=== PATIENT | female | born 1955 | race Caucasian/White ===

== ENCOUNTER 2024-04-11 16:30 | Observation (INO) | payer OTHER ==
[2024-04-11 17:42] LABS: #Basophils 0.05 10x3/uL (0.0-0.2); %Basophils 0.5 % (0.0-1.0); %Eosinophils 4.8 % (0.0-10.0); %Lymphocytes 36.4 % (21.0-51.0); %Monocytes 7.2 % (0.0-10.0); %Neutrophils 50.7 % (42.0-75.0); Hematocrit 41.1 % (36.0-47.0); Hemoglobin 13.4 g/dL (12.0-16.0); Mean Corpuscular HGB CONC 32.6 g/dL (32.0-36.0); Mean Corpuscular Hemoglobin 28.1 pg (27.0-31.0); Mean Corpuscular Volume 86.2 fL (78.0-98.0); Mean Platelet Volume 9.7 fL (7.4-10.4); Platelet Count 307 10x3/uL (130-400); RBC Distribution Width 15.1 % (11.5-14.5); Red Blood Cell (RBC) Count 4.77 mill/uL (4.20-5.40)
[2024-04-11 18:01] LABS: INR-International Normal Ratio 0.9; Prothrombin Time 11.9 sec (12.0-14.7)
[2024-04-11 18:02] LABS: ALT (SGPT) 14 U/L (8-55); AST (SGOT) 16 U/L (5-34); Albumin 3.4 g/dL (3.4-4.8); Alkaline Phosphatase 112 U/L (40-110); Anion Gap 12 mmol/L (10-20); BUN (Urea Nitrogen) 12 mg/dL (9.8-20.1); Bilirubin, Total 0.6 mg/dL (0.2-1.2); Calc. Creatinine Clearance 0 mL/min (70-130); Calcium 9.1 mg/dL (7.8-10.44); Carbon Dioxide 33 mmol/L (23-31); Chloride 98 mmol/L (98-107); Estimated GFR 75; Globulin 3.7 g/dL (2.4-3.5); Glucose 108 mg/dL (80-115); PTT 31.8 sec (22.9-36.1); Potassium 3.2 mmol/L (3.5-5.1); Protein, Total 7.1 g/dL (5.8-8.1); Sodium 140 mmol/L (136-145)
[2024-04-11 18:07] LABS: Troponin I Less than 0.010 ng/mL (< 0.028)
[2024-04-11] MEDS ORDERED: hydrALAZINE 20 MG/ML VIAL SLOW IVP PRN (19:30)
[2024-04-11] MEDS ORDERED: Senokot S 8.6-50 MG TAB PO PRN (19:30)
[2024-04-11] MEDS ORDERED: Ondansetron ODT 4 MG TAB PO PRN (19:30)
[2024-04-11] MEDS ORDERED: Ondansetron PF 4 MG/2 ML Vial IVP PRN (19:30)
[2024-04-11] MEDS ORDERED: Calcium Carbonate 500 MG ChewTAB PO PRN (19:30)
[2024-04-11] MEDS: Mirtazapine 15 MG TAB PO SCH (23:02)
[2024-04-11] MEDS: Sodium Chloride 0.9% 1,000 ML IV SCH (23:02)
[2024-04-11] MEDS: DULoxetine 60 MG CAP PO SCH (23:02)
[2024-04-11] MEDS: Atorvastatin Calcium 40 MG TAB PO SCH (23:02)
[2024-04-11] MEDS: Gabapentin 300 MG CAP PO SCH (23:03)
[2024-04-11 23:05] VITALS: BMI 42.1
[2024-04-12] MEDS: Ipratropium Bromide 2.5 ml Neb NEB SCH (02:02)
[2024-04-12 05:48] LABS: #Basophils 0.05 10x3/uL (0.0-0.2); %Basophils 0.8 % (0.0-1.0); %Monocytes 10.2 % (0.0-10.0); %Neutrophils 46.7 % (42.0-75.0); Hematocrit 38.8 % (36.0-47.0); Hemoglobin 11.9 g/dL (12.0-16.0); Mean Corpuscular HGB CONC 30.7 g/dL (32.0-36.0); Mean Corpuscular Hemoglobin 27.9 pg (27.0-31.0); Mean Corpuscular Volume 91.1 fL (78.0-98.0); Mean Platelet Volume 9.7 fL (7.4-10.4); Platelet Count 275 10x3/uL (130-400); RBC Distribution Width 15.2 % (11.5-14.5); Red Blood Cell (RBC) Count 4.26 mill/uL (4.20-5.40)
[2024-04-12 05:59] LABS: Hemoglobin A1c 5.7 % (4.0-6.0)
[2024-04-12 06:18] LABS: ALT (SGPT) 13 U/L (8-55); AST (SGOT) 16 U/L (5-34); Albumin 2.9 g/dL (3.4-4.8); Alkaline Phosphatase 95 U/L (40-110); Anion Gap 8 mmol/L (10-20); BUN (Urea Nitrogen) 13 mg/dL (9.8-20.1); Bilirubin, Total 0.4 mg/dL (0.2-1.2); Calc. Creatinine Clearance 123 mL/min (70-130); Calcium 8.7 mg/dL (7.8-10.44); Carbon Dioxide 37 mmol/L (23-31); Cardiac Risk 4.7 (Less than 4.5); Chloride 103 mmol/L (98-107); Cholesterol 160 mg/dl (< 200 Desired); Estimated GFR 79; Globulin 3.2 g/dL (2.4-3.5); Glucose 100 mg/dL (80-115); HDL Cholesterol 34 mg/dL (>60 Neg Risk); LDL Cholesterol, Calculated 87 mg/dL; Potassium 3.3 mmol/L (3.5-5.1); Protein, Total 6.1 g/dL (5.8-8.1); Sodium 145 mmol/L (136-145); Triglycerides 196 mg/dL (Less than 150)
[2024-04-12] MEDS: Acetaminophen 325 MG TAB PO PRN (09:42)
[2024-04-12] MEDS: Enoxaparin 40 MG (0.4 mL) SYRINGE SC SCH (09:42)
[2024-04-12] MEDS: Isosorbide Mononitrate 30 MG ER.TAB PO SCH (09:42)
[2024-04-12] MEDS: Aspirin 81 mg Enteric Coated Tablet PO SCH (09:43)
[2024-04-12] MEDS: Pantoprazole DR 40 MG TAB PO SCH (09:43)
[2024-04-12] MEDS: Clopidogrel Bisulfate 75 MG TAB PO SCH (09:43)
[2024-04-12] MEDS: Potassium Chloride 20 MEQ TAB PO SCH (09:43)
[2024-04-12 11:25] VITALS: BMI 42.1
[2024-04-12 15:28] VITALS: BP 152/89; TEMP 98.4
[2024-04-12] MEDS ORDERED: Nicotine 21 MG PATCH TD SCH (21:00)
== END 2024-04-12 19:30 | disposition home or self-care (01) ==
LOC: SUATTDRO 16:30 → ERS 16:30 → ERHOLD 18:53 → 2SE 22:34
PROVIDERS: ADMIT Internal Medicine; ATTEND Internal Medicine
DX: R53.1 Weakness (principal); R47.1 Dysarthria and anarthria; J44.9 Chronic obstructive pulmonary disease, unspecified; I10 Essential (primary) hypertension; E78.5 Hyperlipidemia, unspecified; I25.10 Atherosclerotic heart disease of native coronary artery without angina pectoris; Z95.5 Presence of coronary angioplasty implant and graft; Z79.82 Long term (current) use of aspirin; Z79.899 Other long term (current) drug therapy
CPT/HCPCS: 36415; 70551; 80053; 80061; 83036; 84443; 84484; 85025; 85610; 85730; 93005; 93306; 93880; 94640; 94760; 96372; G0378; J1650; J7030; J7644